=== PATIENT | female | born 1945 | race African-American/Black ===

== ENCOUNTER 2021-11-11 12:34 | Inpatient (IN) ==
[2021-11-11 13:26] LABS: Basophils % 0.1 % (0.0-0.8); Eosinophils % 0.1 % (0.00-10.9); Hematocrit 31.5 VOL% (35.7-47.0); Hemoglobin 9.6 GM/DL (12.0-16.0); Immature Granulocytes % 0.5 %; Immature Granulocytes Absolute 0.07 #; Lymphocytes % 6.7 % (21.3-54.2); Mean Corpuscular HGB Conc 30.5 GM/DL (32-36); Mean Corpuscular Volume 78.2 FL (87-102); Mean Platelet Volume 10.9 FL (9.6-12.0); Monocytes # 0.9 10*3/uL (0.11-0.8); Monocytes % 6.1 % (1.7-12.7); Neutrophils % 86.5 % (38.7-73.9); Platelet Count 327 T/CUMM (130-400); Red Blood Count 4.03 MC/CUMM (3.8-5.5); Red Cell Distribution Width 19.5 % (9.3-17.3); White Blood Count 14.3 T/CUMM (4-12)
[2021-11-11 13:31] LABS: Mucus,Urine Occasional /LPF (Occasional); RBC,Urine 12 /HPF (0-4); Squamous Epithelial Cell,Urine Occasional /HPF (0-10); Urine Appearance Slightly Cloudy (Clear); Urine Color Yellow (Yellow)
[2021-11-11 13:32] LABS: Bilirubin,Urine Negative (Negative); Blood, Urine Moderate mg/dL (Negative); Glucose,Urine (UA) 500 mg/dL (Negative); Ketones,Urine Trace mg/dL (Negative); Nitrite,Urine Negative (Negative); Protein,Urine 30 mg/dL (Negative); Urine Urobilinogen 0.2 eU/dL (<2.0)
[2021-11-11 13:40] LABS: INR 1.3; Partial Thromboplastin Time 26.7 SECS (23.7-32.9)
[2021-11-11 13:46] LABS: Alanine Aminotransferase 18 U/L (13-56); Albumin 1.9 G/DL (3.4-5.0); Alkaline Phosphatase 107 U/L (45-117); Aspartate Amino Transferase 42 U/L (0-37); Blood Urea Nitrogen 39 MG/DL (7-18); Carbon Dioxide 22 MMOL/L (21-32); Chloride 107 MMOL/L (98-107); Glucose 363 MG/DL (74-106); Osmolality,Calculated 302.4 MOS/KG (273-304); Potassium 4.7 MMOL/L (3.5-5.1); Sodium 140 MMOL/L (136-145); Total Protein 7.2 G/DL (6.4-8.2)
[2021-11-11] MEDS ORDERED: SODIUM CHLORIDE 0.9% 1,000 ML IV STA (13:50)
[2021-11-11] MEDS ORDERED: GLUCAGON 1 MG VIAL IM PRN (16:15)
[2021-11-11] MEDS ORDERED: ONDANSETRON 4 MG/2 ML VIAL IV PRN (16:15)
[2021-11-11] MEDS ORDERED: SIMETHICONE CHEW 125 MG TABLET PO PRN (16:15)
[2021-11-11] MEDS ORDERED: DOCUSATE SODIUM 100 MG CAPSULE PO PRN (16:15)
[2021-11-11] MEDS ORDERED: LACTULOSE 20 GM/30 ML UDCUP PO PRN (16:15)
[2021-11-11] MEDS ORDERED: DEXTROSE 10% 250 ML BAG IV PRN (16:31)
[2021-11-11] MEDS: INSULIN LISPRO 100 UNIT/ML SUBCUT SCH ×2 (16:48→20:00)
[2021-11-11] MEDS: LACTATED RINGERS 1,000 ML IV SCH (16:48)
[2021-11-11] MEDS: ENOXAPARIN 30 MG/0.3 ML SYRINGE SUBCUT SCH (16:49)
[2021-11-11] MEDS ORDERED: hydrALAZINE 20 MG/1 ML VIAL IV PRN (16:51)
[2021-11-11] MEDS: PANTOPRAZOLE 40 MG VIAL IV SCH (17:28)
[2021-11-11 19:47] LABS: Thyroid Stimulating Hormone 1.38 uIU/ml (0.358-3.74)
[2021-11-11] MEDS: INSULIN GLARGINE 100 UNIT/ML SUBCUT SCH (20:00)
[2021-11-11] MEDS: ROSUVASTATIN 10 MG TABLET PO SCH (20:00)
[2021-11-11] MEDS ORDERED: ALBUTEROL 1.25 MG/3 ML NEB RESP TX PRN (21:18)
[2021-11-11 22:30] LABS: Basophils % 0.1 % (0.0-0.8); Eosinophils % 0.1 % (0.00-10.9); Hematocrit 28.6 VOL% (35.7-47.0); Hemoglobin 8.6 GM/DL (12.0-16.0); Immature Granulocytes % 0.4 %; Immature Granulocytes Absolute 0.06 #; Lymphocytes # 1.5 10*3/uL (1.4-4.0); Lymphocytes % 10.2 % (21.3-54.2); Mean Corpuscular HGB Conc 30.1 GM/DL (32-36); Mean Corpuscular Volume 79.4 FL (87-102); Mean Platelet Volume 10.9 FL (9.6-12.0); Monocytes # 1.6 10*3/uL (0.11-0.8); Monocytes % 11.2 % (1.7-12.7); Platelet Count 284 T/CUMM (130-400); Red Cell Distribution Width 19.7 % (9.3-17.3); White Blood Count 14.2 T/CUMM (4-12)
[2021-11-11 22:44] LABS: Calcium 10.2 MG/DL (8.5-10.1); Osmolality,Calculated 295.1 MOS/KG (273-304); Potassium 3.8 MMOL/L (3.5-5.1)
[2021-11-11] MEDS: guaiFENesin/CODEINE 5 ML LIQUID PO PRN (23:55)
[2021-11-12] MEDS: LACTATED RINGERS 1,000 ML IV SCH ×3 (04:00→23:52)
[2021-11-12 05:10] LABS: Basophils % 0.1 % (0.0-0.8); Eosinophils # 0.1 10*3/uL (0.0-0.87); Eosinophils % 0.4 % (0.00-10.9); Hematocrit 29.6 VOL% (35.7-47.0); Hemoglobin 8.9 GM/DL (12.0-16.0); Immature Granulocytes % 0.6 %; Immature Granulocytes Absolute 0.09 #; Lymphocytes # 1.8 10*3/uL (1.4-4.0); Lymphocytes % 12.9 % (21.3-54.2); Mean Corpuscular HGB Conc 30.1 GM/DL (32-36); Mean Corpuscular Volume 80.2 FL (87-102); Mean Platelet Volume 11.2 FL (9.6-12.0); Monocytes # 1.6 10*3/uL (0.11-0.8); Monocytes % 11.6 % (1.7-12.7); Neutrophils % 74.4 % (38.7-73.9); Platelet Count 277 T/CUMM (130-400); Red Blood Count 3.69 MC/CUMM (3.8-5.5); Red Cell Distribution Width 19.8 % (9.3-17.3)
[2021-11-12 05:27] LABS: % Iron Saturation 12.4 % (18-50); Ferritin 326.5 ng/mL (8-252)
[2021-11-12 05:31] LABS: Folate 12.41 NG/ML (5.38-24.0)
[2021-11-12 05:36] LABS: Albumin 1.7 G/DL (3.4-5.0); Bilirubin,Total 0.4 MG/DL (0.20-1.00); Calcium 10.4 MG/DL (8.5-10.1); Osmolality,Calculated 292.3 MOS/KG (273-304); Risk Ratio 4.05; Total Protein 6.9 G/DL (6.4-8.2); VLDL Cholesterol 22.4 MG/DL
[2021-11-12] MEDS: INSULIN LISPRO 100 UNIT/ML SUBCUT SCH ×5 (08:37→21:33)
[2021-11-12] MEDS: ASPIRIN EC 81 MG TABLET PO SCH (09:17)
[2021-11-12] MEDS: PANTOPRAZOLE 40 MG VIAL IV SCH (10:17)
[2021-11-12] MEDS ORDERED: ZINC OXIDE PASTE 113 GM TUBE TOP PRN (13:22)
[2021-11-12] MEDS: ACETYLCYSTEINE 600 MG CAPSULE PO SCH ×2 (15:36→22:51)
[2021-11-12] MEDS: amLODIPine 2.5 MG TABLET PO SCH (15:36)
[2021-11-12] MEDS ORDERED: GLUCAGON 1 MG VIAL IM PRN (16:10)
[2021-11-12] MEDS ORDERED: DEXTROSE 10% 250 ML BAG IV PRN (16:11)
[2021-11-12] MEDS: ENOXAPARIN 30 MG/0.3 ML SYRINGE SUBCUT SCH (16:42)
[2021-11-12] MEDS: ROSUVASTATIN 10 MG TABLET PO SCH (21:32)
[2021-11-12] MEDS: INSULIN GLARGINE 100 UNIT/ML SUBCUT SCH (21:33)
[2021-11-12] MEDS: guaiFENesin/CODEINE 5 ML LIQUID PO PRN (22:46)
[2021-11-13 05:44] LABS: Basophils % 0.2 % (0.0-0.8); Eosinophils # 0.1 10*3/uL (0.0-0.87); Eosinophils % 0.9 % (0.00-10.9); Hemoglobin 8.4 GM/DL (12.0-16.0); Immature Granulocytes % 0.6 %; Immature Granulocytes Absolute 0.08 #; Lymphocytes # 1.6 10*3/uL (1.4-4.0); Lymphocytes % 12.4 % (21.3-54.2); Mean Corpuscular Volume 79.3 FL (87-102); Mean Platelet Volume 11.5 FL (9.6-12.0); Monocytes # 1.7 10*3/uL (0.11-0.8); Monocytes % 13.1 % (1.7-12.7); Neutrophils % 72.8 % (38.7-73.9); Platelet Count 272 T/CUMM (130-400); Red Blood Count 3.53 MC/CUMM (3.8-5.5); Red Cell Distribution Width 20.2 % (9.3-17.3); White Blood Count 13.1 T/CUMM (4-12)
[2021-11-13 06:00] LABS: Albumin 1.5 G/DL (3.4-5.0); Bilirubin,Total 0.8 MG/DL (0.20-1.00); Calcium 10.2 MG/DL (8.5-10.1); Osmolality,Calculated 289.1 MOS/KG (273-304); Potassium 3.5 MMOL/L (3.5-5.1); Total Protein 6.4 G/DL (6.4-8.2)
[2021-11-13] MEDS ORDERED: BUPIVACAINE MPF 0.25% 10 ML VIAL ONE (06:26)
[2021-11-13] MEDS ORDERED: LIDOCAINE 1%/EPI INJ 20 ML VIAL ONE (06:26)
[2021-11-13] MEDS ORDERED: HEPARIN 5,000 UNIT/1 ML VIAL ONE (06:26)
[2021-11-13] MEDS ORDERED: TISSUE ADHESIVE 1 EACH APPLICATOR TOP ONE (06:26)
[2021-11-13] MEDS ORDERED: MIDAZOLAM 2 MG/2 ML VIAL ONE (06:27)
[2021-11-13] MEDS ORDERED: LIDOCAINE 2% 5 ML VIAL ONE (06:27)
[2021-11-13] MEDS ORDERED: propofoL 200 MG/20 ML VIAL IV ONE (06:27)
[2021-11-13] MEDS ORDERED: fentaNYL 100 MCG/2 ML VIAL ONE (06:27)
[2021-11-13] MEDS ORDERED: CLINDAMYCIN INJ 900 MG/50 ML PREMIX IV ONE (07:53)
[2021-11-13] MEDS ORDERED: LACTATED RINGERS 1,000 ML IV SCH (08:00)
[2021-11-13] MEDS ORDERED: KETAMINE 500 MG/10 ML VIAL ONE (08:05)
[2021-11-13] MEDS ORDERED: PHENYLEPHRINE 1 MG/10 ML SYRINGE IV ONE (08:19)
[2021-11-13] MEDS ORDERED: SODIUM CHLORIDE 0.9% 250 ML IV ONE (08:29)
[2021-11-13] MEDS ORDERED: DEXTROSE 50% 25 GM/50 ML VIAL IV PRN (09:41)
[2021-11-13] MEDS ORDERED: GLUCAGON 1 MG VIAL IM PRN (09:41)
[2021-11-13] MEDS: ASPIRIN EC 81 MG TABLET PO SCH (10:18)
[2021-11-13] MEDS: ACETYLCYSTEINE 600 MG CAPSULE PO SCH ×2 (10:19→21:19)
[2021-11-13] MEDS: PANTOPRAZOLE 40 MG VIAL IV SCH (10:19)
[2021-11-13] MEDS: LACTATED RINGERS 1,000 ML IV SCH ×2 (10:20→18:44)
[2021-11-13] MEDS: amLODIPine 2.5 MG TABLET PO SCH (10:20)
[2021-11-13] MEDS: INSULIN LISPRO 100 UNIT/ML SUBCUT SCH ×4 (10:41→21:18)
[2021-11-13] MEDS: ENOXAPARIN 30 MG/0.3 ML SYRINGE SUBCUT SCH (17:11)
[2021-11-13] MEDS: ROSUVASTATIN 10 MG TABLET PO SCH (21:18)
[2021-11-13] MEDS: INSULIN GLARGINE 100 UNIT/ML SUBCUT SCH (21:18)
[2021-11-14] MEDS: LACTATED RINGERS 1,000 ML IV SCH ×3 (01:42→14:18)
[2021-11-14] MEDS: ACETYLCYSTEINE 600 MG CAPSULE PO SCH ×2 (09:11→21:22)
[2021-11-14] MEDS: amLODIPine 2.5 MG TABLET PO SCH (09:11)
[2021-11-14] MEDS: ASPIRIN EC 81 MG TABLET PO SCH (09:11)
[2021-11-14] MEDS: INSULIN LISPRO 100 UNIT/ML SUBCUT SCH ×4 (09:12→21:22)
[2021-11-14] MEDS: PANTOPRAZOLE 40 MG VIAL IV SCH (09:12)
[2021-11-14 09:49] LABS: Basophils % 0.1 % (0.0-0.8); Eosinophils # 0.1 10*3/uL (0.0-0.87); Eosinophils % 0.4 % (0.00-10.9); Hematocrit 27.5 VOL% (35.7-47.0); Hemoglobin 8.2 GM/DL (12.0-16.0); Immature Granulocytes % 0.7 %; Lymphocytes # 1.2 10*3/uL (1.4-4.0); Lymphocytes % 8.7 % (21.3-54.2); Mean Corpuscular HGB Conc 29.8 GM/DL (32-36); Mean Corpuscular Volume 78.8 FL (87-102); Mean Platelet Volume 10.9 FL (9.6-12.0); Monocytes # 1.4 10*3/uL (0.11-0.8); Monocytes % 10.4 % (1.7-12.7); Neutrophils % 79.7 % (38.7-73.9); Platelet Count 231 T/CUMM (130-400); Red Blood Count 3.49 MC/CUMM (3.8-5.5); Red Cell Distribution Width 20.2 % (9.3-17.3); White Blood Count 13.9 T/CUMM (4-12)
[2021-11-14 10:06] LABS: Calcium 10.3 MG/DL (8.5-10.1); Osmolality,Calculated 286.4 MOS/KG (273-304); Potassium 3.4 MMOL/L (3.5-5.1)
[2021-11-14] MEDS ORDERED: TUBERCULIN SKIN TEST 0.1 ML SYRINGE INTRADERM ONE (16:00)
[2021-11-14] MEDS: ENOXAPARIN 30 MG/0.3 ML SYRINGE SUBCUT SCH (17:14)
[2021-11-14] MEDS: ROSUVASTATIN 10 MG TABLET PO SCH (21:22)
[2021-11-14] MEDS: INSULIN GLARGINE 100 UNIT/ML SUBCUT SCH (21:23)
[2021-11-15] MEDS: INSULIN LISPRO 100 UNIT/ML SUBCUT SCH ×4 (07:37→22:00)
[2021-11-15] MEDS: ACETYLCYSTEINE 600 MG CAPSULE PO SCH ×2 (09:16→21:58)
[2021-11-15] MEDS: ASPIRIN EC 81 MG TABLET PO SCH (09:18)
[2021-11-15] MEDS: amLODIPine 2.5 MG TABLET PO SCH (09:18)
[2021-11-15] MEDS: LACTATED RINGERS 1,000 ML IV SCH ×2 (09:19→19:41)
[2021-11-15] MEDS: PANTOPRAZOLE 40 MG VIAL IV SCH (10:02)
[2021-11-15] MEDS ORDERED: LOPERAMIDE 1 MG/7.5 ML 30 ML BOTTLE PO ONE (15:00)
[2021-11-15] MEDS ORDERED: LOPERAMIDE 2 MG CAPSULE PO ONE (15:00)
[2021-11-15] MEDS: ENOXAPARIN 30 MG/0.3 ML SYRINGE SUBCUT SCH (17:01)
[2021-11-15] MEDS: ROSUVASTATIN 10 MG TABLET PO SCH (21:58)
[2021-11-15] MEDS: INSULIN GLARGINE 100 UNIT/ML SUBCUT SCH (22:00)
[2021-11-16] MEDS: INSULIN LISPRO 100 UNIT/ML SUBCUT SCH ×2 (08:26→12:37)
[2021-11-16] MEDS: LACTATED RINGERS 1,000 ML IV SCH ×3 (08:44→11:17)
[2021-11-16] MEDS: ASPIRIN EC 81 MG TABLET PO SCH (08:45)
[2021-11-16] MEDS: PANTOPRAZOLE 40 MG VIAL IV SCH (08:49)
[2021-11-16] MEDS: ACETYLCYSTEINE 600 MG CAPSULE PO SCH (08:49)
[2021-11-16] MEDS: amLODIPine 2.5 MG TABLET PO SCH (08:49)
[2021-11-16 13:12] VITALS: BP 151/90
== END 2021-11-16 14:41 | disposition hospice, inpatient (51) | DRG 54 ==
LOC: EDBD → EDUNIT# → N.ED 12:34 → N.EDINP 16:15 → SUATTDRO 16:15 → N.TELEN 17:53 → N.TELES 11-14 16:19
PROVIDERS: ADMIT Internal Medicine; ATTEND Internal Medicine